=== PATIENT | female | born 1980 ===

== ENCOUNTER 2018-03-01 13:30 | Outpatient (CLI) | payer OTHER ==
--- NOTE | 2018-03-01 18:16 | MRI ---
MRI OF THE LEFT ANKLE WITHOUT CONTRAST: Date: 03/01/18 INDICATION: Left ankle pain with tenderness along the lateral malleolus and Achilles tendon. TECHNIQUE: Multiplanar, multisequence MR images were obtained of the left ankle without IV contrast. No comparisons are available. FINDINGS: There is a split thickness tear involving the peroneus brevis tendon that originates just posterior t o the lateral malleolus and continues through the local lateral retinaculum with reconstitution just distal to the lateral retinaculum with a normal insertion to the base of the fifth metatarsal. The pe roneus longus tendon is intact. There is mild peroneal tenosynovitis present. The medial flexor tendo ns appear within normal limits. The extensor tendons and Achilles tendon is normal appearing. There is nonvisualization of the normal ATFL ligament. The PTFL and calcaneofibular ligament, however , are intact. The deltoid ligaments are intact. The syndesmotic ligaments appear intact. Sinus tarsi has a normal signal intensity. Plantar fascia appears within normal limits. Lisfranc ligament is inta ct. Bone marrow signal intensity is within normal limits. IMPRESSION: Split thickness tear of the peroneus brevis with mild peroneal tenosynovitis. Chronic ATFL full thickness tear. POS: OFF
== END 2018-03-01 13:31 | disposition home or self-care (01) ==
LOC: BICMRI 13:30
PROVIDERS: ATTEND Family Medicine
DX: M25.572 Pain in left ankle and joints of left foot (principal); S93.402A Sprain of unspecified ligament of left ankle, initial encounter; M65.872 Other synovitis and tenosynovitis, left ankle and foot

== ENCOUNTER 2018-03-01 13:54 | Outpatient (CLI) | payer OTHER ==
--- NOTE | 2018-03-01 16:33 | ULT ---
SOFT TISSUE NECK ULTRASOUND: History: Patient feels lumps in her neck. Comparison: None. Technique: Transverse and sagittal imaging of the region of interest in the left neck is performed. FINDINGS: There is evidence of soft tissue echotexture. No solid or cystic masses. No evidence of lymphadenopat hy. IMPRESSION: Unremarkable soft tissue neck ultrasound. POS: JAIME
== END 2018-03-01 13:55 | disposition home or self-care (01) ==
LOC: BICULT 13:54
PROVIDERS: ATTEND Family Medicine
DX: R22.1 Localized swelling, mass and lump, neck (principal)
CPT/HCPCS: 76999